=== PATIENT | male | born 1980 | race Caucasian/White ===

== ENCOUNTER 2020-09-12 23:36 | Emergency (ER) | payer BC, SELFPAY ==
--- NOTE | ~2020-09-12 | XR_ITS ---
XR hand RT min 3V DATE: 09/13/2020 02:12 INDICATION: Third digit pain and swelling for 5 days. No injury. TECHNIQUE: 3 views of right hand COMPARISON: None FINDINGS: There is prominent soft tissue swelling of the third digit, particularly proximally. No rad iopaque soft tissue foreign body or subcutaneous emphysema of the third digit is detected. There is a small linear radiopaque foreign body of the soft tissue web between the first and second m etacarpal heads. No recent fracture or dislocation, periosteal reaction or bone destruction is evident. There is an ol d healed fracture deformity of the proximal aspect of the fifth metacarpal bone. Mild osteoarthritic changes are noted at the first carpometacarpal, first metacarpophalangeal and fir st interphalangeal joints. IMPRESSION: Prominent nonspecific soft tissue swelling of the third digit; no subcutaneous emphysema or radiopaque foreign body of the third digit. Small radiopaque foreign body of the web between the heads of the first and second metacarpal bones Osteoarthritis Reviewed, dictated and finalized at location A. IMPRESSION: Prominent nonspecific soft tissue swelling of the third digit; no s ubcutaneous emphysema or radiopaque foreign body of the third digit. Small radiopaque foreign body of the web between the heads of the first and sec ond metacarpal bones Osteoarthritis
[2020-09-12 23:38] VITALS: BP 133/84; PULSE 106; RESP 18; TEMP 36.7; O2SAT 99
--- NOTE | 2020-09-13 01:03 | PC.NURSE ---
this rn heard pt yell ceasrk this from nursing station. this rn went into room to check on pt. pt out of bed stating fuck this, im going to stab this myself to relieve the pressure. this rn states i wouldnt recommend that, but the doctor will be in as soon as he can. all cabinets in room are locked at this time. ice bag was given to pt upon arrival to room. pt refuses to use it saying i read on google that i should apply a hot pad.
--- NOTE | 2020-09-13 01:13 | PC.NURSE ---
pt in room running hot water over wound. refusing to stay in bed.
[2020-09-13 01:45] VITALS: BP 128/74; PULSE 100; RESP 18; O2SAT 99
[2020-09-13] MEDS: MORPHINE SULFATE (*CRX) 4 MG/ML INJ IV PUSH (01:55)
[2020-09-13 02:11] LABS: Basophils Percent Auto 0.3 % (0.2-1.2); Eosinophils Absolute Auto 0.3 K/mm3 (0-0.3); Eosinophils Percent Auto 2.5 % (0-4.4); Hematocrit 36.7 % (42.0-52.0); Hemoglobin 12.1 g/dL (14.0-18.0); Immature Granulocyte Absolute 0.05 K/mm3 (0.00-0.031); Immature Granulocyte Percent A 0.4 % (0-0.5); Lymphocytes Absolute Auto 2.19 K/mm3 (0.9-3.2); Lymphocytes Percent Auto 17.5 % (18.3-44.2); Mean Corpuscular Hemoglobin 31.6 pg (26-34); Mean Corpuscular Volume 95.8 fl (80-100); Mean Platelet Volume 8.7 fl (7.4-10.4); Monocytes Absolute Auto 0.6 K/mm3 (0.1-0.6); Monocytes Percent Auto 4.9 % (2.6-8.5); Neutrophils Absolute Auto 9.3 K/mm3 (1.3-6.7); Neutrophils Percent Auto 74.4 % (45.5-73.1); Platelet Count Result 275 k/mm3 (150-375); Red Blood Count 3.83 M/mm3 (4.6-6.20); Red Cell Distribution Width 13.2 % (11.5-14.5); White Blood Count 12.5 K/mm3 (4.5-10.0)
--- NOTE | 2020-09-13 02:13 | PC.NURSE ---
pt refusing to stay in bed, still running hand under hot water even though multiple people have instructed him not to. notified.
[2020-09-13 02:29] LABS: Prothrombin Time 12.6 Seconds (11.1-14.7)
[2020-09-13 02:30] LABS: Partial Thromboplastin Time 32.1 SECONDS (22.3-36.8)
--- NOTE | 2020-09-13 02:33 | ED.UPPEXIN ---
HPI - Extremity Injury (Upper) General Chief Complaint: Extremity Injury, Upper Stated Complaint: right middle finger edema Time Seen by Provider: 09/13/20 01:31 History of Present Illness HPI narrative: 40 yo male w/ no known medical history presents to the ED c/o finger swelling. Pain and swelling in right hand and proximal portion of middle finger. Worsening for the past few days. Severe. unable to fully flex or extend. No systemic symptom. This was preceeded by a popped blister over the MCP. Related Data Allergies Allergy/AdvReac Type Severity Reaction Status Date / Time No Known Allergies Allergy Verified 09/12/20 23:45 Review of Systems Review of Systems: All systems reviewed & are unremarkable except as noted in HPI and below [facility] Social History Social History (Updated 09/13/20 @ 04:14 by Buddy Fry MD) Gender identity (if verbalized by the patient): Male Sexual Orientation (if Verbalized by the Patient): Straight or Heterosexual Exam Const: General: healthy appearing and alert Orientation/consciousness: patient oriented x3 Other: Mild distress HENMT: Head: normal to inspection Neck: Neck: normal visual inspection Resp: Effort & Inspection: normal respiratory effort Auscultation: clear to auscultation bilaterally Cardio: Rate: regular rate Rhythm: regular rhythm Other: 2+ right radial. brisk distal capillary refill Skin: General skin exam: normal color Neuro: General: patient oriented x3 and moves all extremities Speech: normal speech Other: motor and sensory intact Extrem: Other: circumferential swelling t right third digit. Severe tenderness and pain with passive extension, unable to fully extend. fluctuant over the MCP. Course Vital Signs Vital signs: Vital Signs Temperature 36.7 C 09/12/20 23:38 Pulse Rate 106 H 09/12/20 23:38 Respiratory Rate 18 09/12/20 23:38 Blood Pressure 133/84 09/12/20 23:38 Pulse Oximetry 99 09/12/20 23:38 Temperature 36.7 C 09/12/20 23:38 Pulse Rate 82 09/13/20 04:22 Respiratory Rate 18 09/13/20 04:22 Blood Pressure 134/77 09/13/20 04:22 Pulse Oximetry 99 09/13/20 04:22 Procedures Abscess I/D hand: Date of Incision: 09/13/20 Side (if applicable): right Local Anesthetic: lidocaine 1% Amount of anesthesia used (mL): 5 Technique: incised with #11 blade Amount of fluid expressed (mL): 8 Irrigation: Yes Packing used?: none I&D Results: Pus Abcess I&D Additional Comments: significant pus obtained. Drainage will not be adequate. He will need surgical washout. MDM - Extremity Injury (Upper) MDM Narrative Medical decision making narrative: I&D performed. He has extensive infection and will need surgical washout. I spoke with Dr. Babcock. He was kind enough to discuss the patient despite the fact that he was not insulation engineman, but he was not able come in to see the patient and recommended transfer. Transfer arranged to [facility] Lab Data Result diagrams: 09/13/20 02:02 09/13/20 02:02 Labs: Lab Results 09/13/20 09/13/20 09/13/20 Range/Units 02:02 02:02 02:02 WBC 12.5 H (4.5-10.0) K/mm3 RBC 3.83 L (4.6-6.20) M/mm3 Hgb 12.1 L (14.0-18.0) g/dL Hct 36.7 L (42.0-52.0) % MCV 95.8 (80-100) fl MCH 31.6 (26-34) pg MCHC 33.0 (32-36) g/dl RDW 13.2 (11.5-14.5) % Plt Count 275 (150-375) k/mm3 MPV 8.7 (7.4-10.4) fl Immature Gran % (Auto) 0.4 (0-0.5) % Neut % (Auto) 74.4 H (45.5-73.1) % Lymph % (Auto) 17.5 L (18.3-44.2) % [place] % (Auto) 4.9 (2.6-8.5) % Eos % (Auto) 2.5 (0-4.4) % Baso % (Auto) 0.3 (0.2-1.2) % Lymph # (Auto) 2.19 (0.9-3.2) K/mm3 [place] # (Auto) 0.6 (0.1-0.6) K/mm3 Eos # (Auto) 0.3 (0-0.3) K/mm3 Baso # (Auto) 0.0 (0.0-0.1) K/mm3 Abs Immat Gran (auto) 0.05 H (0.00-0.031) K/mm3 Absolute Neuts (auto) 9.3 H (1.3-6.7)
[2020-09-13 02:41] LABS: Alanine Aminotransferase 19 U/L (4-50); Albumin Level 3.6 g/dL (3.5-5.1); Alkaline Phosphatase 57 U/L (38-126); Anion Gap 4 mmol/L (8-16); Aspartate Amino Transferase 27 U/L (17-59); Bilirubin,Total 0.3 mg/dL (0.2-1.3); Blood Urea Nitrogen 24 mg/dL (9-20); Calcium 8.9 mg/dL (8.4-10.2); Carbon Dioxide 29 mmol/L (22-30); Chloride 106 mmol/L (98-107); Estimated CRCL calculation 78 ml/min; Estimated Glomerular Filt Rate > 60; Glucose 100 mg/dL (65-110); Sodium 139 mmol/L (137-145)
[2020-09-13] MEDS: fentaNYL CITRATE INJ (*CRX) 100 MCG/2 ML VIAL IV PUSH (02:45)
--- NOTE | 2020-09-13 03:15 | PC.NURSE ---
pt gf came to nurses station stating can i get a cup for him so he can have water? this rn informed both pt and gf that he isnt able to have water at this time due to the possibility of him needing surgery. pt then yells come on, i need to have water! this rn apologizes but again tells pt im not able to give him water at this point in time. pt then threatens to get up out of bed and drink out of faucet and the begins to tear at his ice pack with his teeth and states hes going to drink that.
[2020-09-13 04:22] VITALS: BP 134/77; PULSE 82; RESP 18; O2SAT 99
[2020-09-13 04:45] VITALS: BP 122/86; PULSE 80; RESP 16; O2SAT 99
== END 2020-09-13 04:48 | disposition short-term general hospital (02) ==
PROVIDERS: Emergency Provider Emergency Medicine
DX: M65.9 Synovitis and tenosynovitis, unspecified (principal)
CPT/HCPCS: 26010; 36415; 73130; 80053; 85025; 85610; 85730; 86140; 87040; 96365; 96375; 99284; J2270; J3010; J3370

== ENCOUNTER 2023-03-07 02:31 | Emergency (ER) | payer OTHER, SELFPAY ==
--- NOTE | ~2023-03-07 | XR_ITS ---
Clinical Indication: Cough PA and lateral views of the chest: Comparison: 10/03/2018 Findings: The lungs are clear, without evidence of focal consolidation or pleural effusion. Stable de nsity at the right upper lobe region, probably related to the anterior first rib. Cardiomediastinal s ilhouette is within normal limits. Bones and soft tissues are unremarkable. Impression: No acute abnormality. Reviewed, dictated and finalized at location M. AIR DIRECTOR Impression: No acute abnormality.
[2023-03-07 02:32] VITALS: BP 147/96; PULSE 85; RESP 18; TEMP 36.7; O2SAT 97
[2023-03-07] MEDS: KETOROLAC 15 MG/ML VIAL (*BKC) IV PUSH (03:57)
[2023-03-07 04:35] VITALS: PULSE 82; RESP 20
[2023-03-07] MEDS: IPRATROPIUM 0.5 MG/ALBUTEROL SULFATE 2.5 MG AMPUL.NEB 3 ML 6 ML INHALATION (04:35)
[2023-03-07 04:43] VITALS: PULSE 79; RESP 18
--- NOTE | 2023-03-07 05:31 | ED.GENADULT ---
HPI - General Adult General Chief complaint: Back Pain/Injury Stated complaint: back pain/popping sound after cough Time Seen by Provider: 03/07/23 03:17 History of Present Illness HPI narrative: this is a 42-year-old male with history of broken ribs presenting for r sided rib pain. Patient says that he was coughing when he felt a pop in his back. Since then he has been having pain with deep respirations. Patient says he has a history of broken ribs and this feels similar. patient has had a chronic cough for the last 3-4 months. No fever chills productive cough abdominal pain lower extremity edema. Related Data Allergies Allergy/AdvReac Type Severity Reaction Status Date / Time No Known Allergies Allergy Verified 09/12/20 23:45 [facility] Social History Social History Gender identity (if verbalized by the patient): Male Sexual Orientation (if Verbalized by the Patient): Straight or Heterosexual Exam Narrative: APPEARANCE: No apparent distress. Head: atraumatic. EYES: EOMI, NOSE: Atraumatic NECK: Trachea midline RESPIRATORY: Scattered wheezing bilaterally CARDIOVASCULAR: RRR, ABDOMINAL: Non-distended MUSCULOSKELETAl: no deformities, some mild tenderness to palpation over the right ribcage NEURO: Alert. Moving 4/4 extremities SKIN:: Warm, dry. Normal color PSYCHIATRIC: Normal affect Course Vital Signs Vital signs: Vital Signs Temperature 98.1 F 03/07/23 02:32 Pulse Rate 85 03/07/23 02:32 Respiratory Rate 18 03/07/23 02:32 Blood Pressure 147/96 H 03/07/23 02:32 Pulse Oximetry 97 03/07/23 02:32 Oxygen Delivery Room Air 03/07/23 02:32 Temperature 98.1 F 03/07/23 02:32 Pulse Rate 79 03/07/23 04:43 Respiratory Rate 18 03/07/23 04:43 Blood Pressure 147/96 H 03/07/23 02:32 Pulse Oximetry 97 03/07/23 02:32 Oxygen Delivery Room Air 03/07/23 02:32 Medical Decision Making MDM Narrative Medical decision making narrative: -Course: 42-year-old male presenting with a popping sound right rib pain. Chest x-ray not show any evidence of PTX/hemothorax. Patient is given DuoNeb treatment steroidsas he did have some wheezing. patient will be discharged with incentive spirometer and pain control. Given return precautions for shortness of breath, fevers or productive cough -DDX includes but is not limited to: cracked rib, pneumothorax, viral illness, COPD -Co-morbidities complicating care: chronic bronchitis -Independent interpretation of studies: chest x-ray showed no pneumo or hemothorax. -Interventions: DuoNeb treatment, Toradol, dexamethasone -Shared decision making / Disposition: discharge -RX Motrin Tylenol albuterol Vital Signs Vital Signs: Vital Signs Temperature 98.1 F 03/07/23 02:32 Pulse Rate 85 03/07/23 02:32 Respiratory Rate 18 03/07/23 02:32 Blood Pressure 147/96 H 03/07/23 02:32 Pulse Oximetry 97 03/07/23 02:32 Oxygen Delivery Room Air 03/07/23 02:32 Temperature 98.1 F 03/07/23 02:32 Pulse Rate 79 03/07/23 04:43 Respiratory Rate 18 03/07/23 04:43 Blood Pressure 147/96 H 03/07/23 02:32 Pulse Oximetry 97 03/07/23 02:32 Oxygen Delivery Room Air 03/07/23 02:32 Discharge Plan Discharge Clinical Impression: Pain in rib Patient Disposition: Home, Self-Care Condition: Stable Instructions: Antibiotic Form, Rib Fracture (ED) Additional Instructions: use Motrin Tylenol for pain. Incentive spirometer 10 times while awake. Please use albuterol for wheezing. Follow-up with primary care physician listed low. Return if you develop worsening shortness of breath, chest pain, fevers, or productive cough Prescriptions: New ibuprofen 800 mg tablet 800 mg PO TID PRN (Reason: pain) 7 Days Qty: 21 0RF acetaminophen 500 mg tablet 1,000 mg PO TID PRN (Reason: cathleen) 7 Days Qty: 42 0RF albuterol sulfate 90 mcg/actuation HFA aerosol inhaler
[2023-03-07 05:48] VITALS: BP 142/74; PULSE 76; RESP 18; O2SAT 99
== END 2023-03-07 06:18 | disposition home or self-care (01) ==
PROVIDERS: Emergency Provider Emergency Medicine
DX: R07.81 Pleurodynia (principal); J42 Unspecified chronic bronchitis
CPT/HCPCS: 71046; 94640; 96374; 96375; 99284; J1100; J1885

== ENCOUNTER 2023-03-19 15:43 | Outpatient (CLI) | payer OTHER, SELFPAY ==
[2023-03-19 16:03] LABS: Basophils Absolute Auto 0.1 K/mm3 (0.0-0.1); Basophils Percent Auto 0.5 % (0.2-1.2); Eosinophils Absolute Auto 0.3 K/mm3 (0-0.3); Hematocrit 44.4 % (42.0-52.0); Immature Granulocyte Absolute 0.05 K/mm3 (0.00-0.031); Immature Granulocyte Percent A 0.5 % (0-0.5); Lymphocytes Absolute Auto 2.06 K/mm3 (0.9-3.2); Lymphocytes Percent Auto 21.8 % (18.3-44.2); Mean Corpuscular HGB Conc 33.8 g/dl (32-36); Mean Corpuscular Hemoglobin 31.3 pg (26-34); Mean Corpuscular Volume 92.7 fl (80-100); Monocytes Absolute Auto 0.4 K/mm3 (0.1-0.6); Monocytes Percent Auto 4.7 % (2.6-8.5); Neutrophils Absolute Auto 6.6 K/mm3 (1.3-6.7); Neutrophils Percent Auto 69.5 % (45.5-73.1); Platelet Count Result 263 k/mm3 (150-375); Red Blood Count 4.79 M/mm3 (4.6-6.20); White Blood Count 9.5 K/mm3 (4.5-10.0)
[2023-03-19 17:25] LABS: Erythrocyte Sedimentation Rate 5 mm/hr (0-20)
[2023-03-19 20:17] LABS: Alanine Aminotransferase 68 U/L (6-50); Albumin Level 3.8 g/dL (3.5-5.1); Alkaline Phosphatase 56 U/L (38-126); Anion Gap 5 mmol/L (8-16); Aspartate Amino Transferase 53 U/L (17-59); Bilirubin,Total 0.3 mg/dL (0.2-1.3); Blood Urea Nitrogen 20 mg/dL (9-20); CRP < 0.5 mg/dL (<1.0); Carbon Dioxide 26 mmol/L (22-30); Chloride 109 mmol/L (98-107); Estimated Glomerular Filt Rate 60; Glucose 103 mg/dL (65-110); Lactate Dehydrogenase 270 U/L (120-246); Sodium 140 mmol/L (137-145)
== END 2023-03-19 15:44 | disposition home or self-care (01) ==
LOC: ANHLAB 15:46
PROVIDERS: Visit Provider Internal Medicine Hematology & Oncology
DX: D72.829 Elevated white blood cell count, unspecified (principal)
CPT/HCPCS: 36415; 80053; 83615; 85025; 85652; 86140

== ENCOUNTER 2023-03-29 08:49 | Outpatient (CLI) | payer OTHER, SELFPAY ==
--- NOTE | ~2023-03-29 | PE_ITS ---
EXAMINATION: PET skull to mid thigh DATE: 03/29/2023 12:28 INDICATION: Non-Hodgkin lymphoma of intra-abdominal lymph nodes TECHNIQUE: Blood glucose level was 89 mg/dL. 10.665 mCi of 18-fluorodeoxyglucose (18-FDG) was adminis tered i.v. Low dose computed tomography (CT) images were acquired from the base of the brain to the p roximal thighs for attenuation correction and anatomic localization. Positron emission tomography (PE T) images were acquired in the same distribution beginning 55 minutes after injection. The dose-lengt h product (DLP) was 1302.14 mGy-cm. COMPARISON: None FINDINGS: Head/neck: FDG uptake in the oral cavity and vocal cords without suspicious CT correlate is likely ph ysiologic. No abnormal FDG uptake is identified. Chest: No abnormal FDG uptake is identified. There is mild dependent atelectasis of the lungs. The taco ngs are free of focal airspace opacities. No pleural effusion or pneumothorax. No pathologically enla rged thoracic lymph nodes are identified. The heart size is normal. Abdomen/pelvis/proximal thighs: The liver, spleen, pancreas, gallbladder, and adrenal glands are norm al. The kidneys are unremarkable. There are mildly enlarged retroperitoneal lymph nodes which measure up to 12 mm. There is very low level associated FDG uptake with an SUV max of 2.2 noted. There are n o pathologically enlarged pelvic lymph nodes. The appendix is normal. Musculoskeletal: There are healing fractures of the right fifth through eighth ribs. No suspicious FD G uptake is identified. IMPRESSION: 1. Mild retroperitoneal lymphadenopathy with low level FDG uptake, possibly reflecting treated lympho ma. 2. Healing right fifth or eighth rib fractures. Reviewed, dictated and finalized at location L. FIC MAINTENANCE OFFICER IMPRESSION: 1. Mild retroperitoneal lymphadenopathy with low level FDG uptake, possibly ref lecting treated lymphoma. 2. Healing right fifth or eighth rib fractures.
[2023-03-29 09:17] LABS: Glucose Point of Care 89 mg/dl (65-105)
== END 2023-03-29 08:50 | disposition home or self-care (01) ==
LOC: ANHIMG 08:51
PROVIDERS: Visit Provider Internal Medicine Hematology & Oncology
DX: C85.93 Non-Hodgkin lymphoma, unspecified, intra-abdominal lymph nodes (principal); S22.31XA Fracture of one rib, right side, initial encounter for closed fracture; X58.XXXA Exposure to other specified factors, initial encounter
CPT/HCPCS: 78815; 88184; A9552

== ENCOUNTER 2023-03-29 10:40 | Outpatient (CLI) | payer OTHER, SELFPAY | END 2023-03-29 10:41 | disposition home or self-care (01) | PROVIDERS: Visit Provider Internal Medicine Hematology & Oncology | DX: D72.829 Elevated white blood cell count, unspecified (principal) | CPT/HCPCS: 88184 ==